=== PATIENT | female | born 1970 | race Caucasian/White ===

== ENCOUNTER → 2016-04-02 | Outpatient (REF) | payer OTHER ==
[~2016-04-02] MED LIST: IBUP-1114 PO; IBUP200C PO; IRON1TAB PO
[2016-04-02 20:09] LABS: REASON FOR REVIEW COMPREHENSIVE REVIEW
== END ==
LOC: M LAB REF 16:31
PROVIDERS: ATTEND Internal Medicine Medical Oncology
DX: D50.9 Iron deficiency anemia, unspecified (principal)

== ENCOUNTER 2016-04-05 14:30 | Outpatient (CLI) | payer OTHER ==
[~2016-04-05] VITALS: Ht 177.8 cm; Wt 65.9 kg
[2016-04-05] MEDS ORDERED: IRON1TAB PO (14:57)
[2016-04-05] MEDS ORDERED: IBUP-1114 PO (14:57)
[2016-04-05] MEDS ORDERED: IBUP200C PO (14:57)
[2016-04-05] MEDS ORDERED: SODIUM CHLORIDE 0.9% 1000 ML IV ONE (15:15)
[2016-04-05] MEDS ORDERED: ACETAMINOPHEN TAB 650MG DOSE (2X325MG) PO ONE (15:15)
[2016-04-05] MEDS ORDERED: diphenhydrAMINE 25 MG CAP PO ONE (15:15)
== END 2016-04-05 21:30 | disposition home or self-care (01) ==
LOC: M OPCLIPED 14:30 → M OPCLI4PR 14:30 → M PED 14:33 → M OPCLI4PR 21:30
PROVIDERS: ATTEND Nurse Practitioner Family
DX: D50.9 Iron deficiency anemia, unspecified (principal)

== ENCOUNTER → 2016-04-05 | Outpatient (REF) | payer OTHER ==
[~2016-04-05] MED LIST changes: +TYLE325T5 PO
== END ==
LOC: M LAB REF 13:12
PROVIDERS: ATTEND Nurse Practitioner Family
DX: D64.9 Anemia, unspecified (principal)

== ENCOUNTER → 2016-04-10 | Outpatient (REF) | payer OTHER ==
[~2016-04-10] MED LIST changes: +VITA1TAB27 PO
[2016-04-10 13:14] LABS: PERCENT SATURATION 8.2 % (13.2-37.4)
== END ==
LOC: M LAB REF 11:32
PROVIDERS: ATTEND Internal Medicine Medical Oncology
DX: E55.9 Vitamin D deficiency, unspecified (principal); D69.6 Thrombocytopenia, unspecified

== ENCOUNTER → 2016-04-13 | Outpatient (CLI) | payer OTHER ==
[~2016-04-13] VITALS: Ht 177.8 cm; Wt 65.8 kg
[~2016-04-13] MED LIST changes: +NS 1,000 ML IV SCH
--- NOTE | 2016-04-13 12:48 | ROOR ---
Patient Name: Ibeth Ayon Procedure Date: 04/13/2016 12:32 PM Date of : 1970 Age: 45 Room: [facility] Gender: Female Note Status: Finalized Procedure: Upper GI endoscopy Indications: Iron deficiency anemia (vs hematologic d/o--Low TIBC with mildly depressed iron is suggestive of other than iron deficit) Providers: Tima BOOTH MD Referring MD: Molina SCALES DO Requesting Provider: Medicines: Monitored Anesthesia Care Complications: No immediate complications. Procedure: Pre-Anesthesia Assessment: - The heart rate, respiratory rate, oxygen saturations, blood pressure, adequacy of pulmonary ventilation, and response to care were monitored throughout the procedure. The Endoscope was introduced through the mouth, and advanced to the second part of duodenum. The upper GI endoscopy was accomplished without difficulty. The patient tolerated the procedure well. Findings: The esophagus was normal. The stomach was normal. The examined duodenum was normal. Impression: - Normal esophagus. - Normal stomach. - Normal examined duodenum. - No specimens collected. Recommendation: - Observe patient's clinical course. Tima Booth MD Tima BOOTH MD 04/13/2016 12:48:18 PM This report has been signed electronically. Number of Addenda: 0 Note Initiated On: 04/13/2016 12:32 PM Estimated Blood Loss: Estimated blood loss: none.
--- NOTE | 2016-04-13 13:02 | ROOR ---
Patient Name: Ibeth Ayon Procedure Date: 04/13/2016 12:33 PM Date of : 1970 Age: 45 Room: [facility] Gender: Female Note Status: Finalized Procedure: Colonoscopy Indications: Iron deficiency anemia Providers: Tima BOOTH MD Referring MD: Molina SCALES DO Requesting Provider: Medicines: Monitored Anesthesia Care Complications: No immediate complications. Procedure: Pre-Anesthesia Assessment: - The heart rate, respiratory rate, oxygen saturations, blood pressure, adequacy of pulmonary ventilation, and response to care were monitored throughout the procedure. The Colonoscope was introduced through the anus and advanced to 5 cm into the ileum. The colonoscopy was performed without difficulty. The patient tolerated the procedure well. The quality of the bowel preparation was adequate and fair. Findings: The perianal and digital rectal examinations were normal. (EXAM: Complete, PREP: Fair/Adequate) Internal hemorrhoids were found during retroflexion. The hemorrhoids were medium-sized. The terminal ileum appeared normal. The entire examined colon appeared normal on direct and retroflexion views. Impression: - Preparation of the colon was fair/adequate after lavage. - Internal hemorrhoids. - The examined portion of the ileum was normal. - The entire colon is normal on direct and retroflexion views. - No specimens collected. Recommendation: - Repeat colonoscopy at age [age] years old. - Please complete the ordered Xray( Small bowel and CT). - We will call you with results and plans. Follow up with your [employer] as scheduled. Tima Booth MD Tima BOOTH MD 04/13/2016 1:01:30 PM This report has been signed electronically. Number of Addenda: 0 Note Initiated On: 04/13/2016 12:33 PM Estimated Blood Loss: Estimated blood loss: none.
[2016-04-13 13:25] VITALS: BP 126/79
== END ==
LOC: M OPP 09:41
PROVIDERS: ATTEND Internal Medicine Gastroenterology
DX: D50.9 Iron deficiency anemia, unspecified (principal); K64.8 Other hemorrhoids; R63.4 Abnormal weight loss; M06.9 Rheumatoid arthritis, unspecified; F41.9 Anxiety disorder, unspecified; F32.9 Major depressive disorder, single episode, unspecified; R12 Heartburn; Z79.899 Other long term (current) drug therapy; J30.2 Other seasonal allergic rhinitis

== ENCOUNTER → 2016-05-08 | Outpatient (REF) | payer OTHER ==
[~2016-05-08] MED LIST changes: -NS 1,000 ML IV SCH
[2016-05-08 13:20] LABS: PERCENT SATURATION 6.6 % (13.2-37.4)
== END ==
LOC: M LAB REF 12:36
PROVIDERS: ATTEND Internal Medicine Medical Oncology
DX: D50.9 Iron deficiency anemia, unspecified (principal)

== ENCOUNTER → 2016-07-31 | Outpatient (REF) | payer OTHER ==
[2016-07-31 14:48] LABS: PERCENT SATURATION 4.7 % (13.2-37.4)
== END ==
LOC: M LAB REF 13:27
PROVIDERS: ATTEND Internal Medicine Medical Oncology
DX: D50.9 Iron deficiency anemia, unspecified (principal)

== ENCOUNTER → 2016-08-10 | Outpatient (CLI) | payer OTHER ==
[~2016-08-10] MED LIST changes: -IBUP200C PO; +IBUP200C10 PO
--- NOTE | 2016-08-10 15:05 | REP ---
MRI STUDY OF THE PELVIS WITHOUT AND WITH IV GADOLINIUM: HISTORY: Evaluate uterine heterogeneity on 05/16/2016 ultrasound. Menorrhagia, severe anemia. Question malignancy. TECHNIQUE: Axial, coronal, and sagittal imaging planes are utilized. T1- and T2-weighted scans are obtained in the usual fashion with and without fat saturation. Gadolinium enhancement dose is 11 mL of intravenous ProHance. MRI FINDINGS: There is no evidence of uterine, cervical, or endometrial mass lesion. No ovarian mass lesion is observed. Normal ovaries are seen. Uterine dimensions are 9.6 x 5.4 x 6.3 cm. There is a small quantity of fluid in the cul-de-sac which may be physiologic fluid. No pelvic mass or adenopathy is seen. Cortical and medullary bone signal intensity are normal as visualized. Bowel loops are unremarkable. No abdominal wall defect is seen. IMPRESSION: No significant abnormality. Small quantity of fluid in the cul-de-sac consistent with physiologic fluid. Signed by Ankush Hanna MD 08/10/2016 05:13 P
== END ==
LOC: M RAD 09:45
PROVIDERS: ATTEND Internal Medicine Medical Oncology
DX: D64.9 Anemia, unspecified (principal); N85.9 Noninflammatory disorder of uterus, unspecified

== ENCOUNTER → 2016-10-01 | Outpatient (REF) | payer OTHER ==
[2016-10-01 14:03] LABS: PERCENT SATURATION 18.4 % (13.2-45.0)
== END ==
LOC: M LAB REF 12:52
PROVIDERS: ATTEND Internal Medicine Medical Oncology
DX: D50.9 Iron deficiency anemia, unspecified (principal)